=== PATIENT | female | born 1955 | race Caucasian/White ===

== ENCOUNTER 2017-02-08 20:45 | Emergency (ER) | payer SELFPAY ==
[2017-02-08] MEDS ORDERED: PAXIL10 M1 (21:11)
[2017-02-08] MEDS ORDERED: SYNTHROID25 MCG (21:12)
[2017-02-08] MEDS ORDERED: DAILY VITE1 TA1 PO (21:12)
[2017-02-08] MEDS ORDERED: CHLOROTHIAZIDE PO (21:13)
[2017-02-08] MEDS ORDERED: OMEPRAZOLE20 MG PO (22:59)
[2017-02-08] MEDS ORDERED: ONDANSETRON HYDR4 MG PO (23:20)
[2017-02-08] MEDS ORDERED: POTASSIUM CHLO20 ME3 PO (23:20)
[2017-02-09 00:59] VITALS: BP 142/92
== END 2017-02-09 00:59 | disposition home or self-care (01) ==
LOC: ED 20:45
DX: R42 Dizziness and giddiness (principal); J30.2 Other seasonal allergic rhinitis; E87.6 Hypokalemia; K21.9 Gastro-esophageal reflux disease without esophagitis
CPT/HCPCS: J2405; J3480; J7030